=== PATIENT | female | born 1955 | race Caucasian/White ===

== ENCOUNTER 2016-10-09 15:42 | Inpatient (IN) | payer MEDICARE ==
[~2016-10-09] VITALS: Ht 157.5 cm; Wt 110.4 kg
--- NOTE | ~2016-10-09 | ECH ---
Transesophageal Echocardiography Report (LALO) Demographics Patient Name ANNA ESTRADA Date of Study 10/15/2016 Patient Number [id number] Visit Number [id number] Date of 1955 Room Number 312 Accession Number [id number] Gender Female Age 61 year(s) Referring Jacob Coburn MD Lasting Machine Operator Bed Merlyn Steiner [facility] Physician Natalia Coburn MD Physician Interpreting Dank Rich Kennel Aide Physician Supervising Ordering Physician Dank Rich MD/MLGema MILLS Nurse Stress Roll Line Operator Conclusions Summary Informed consent obtained. Transesophageal echocardiogram was done under moderate sedation . Esophageal intubation without difficulty x 1 attempt. The estimated left ventricular ejection fraction is 50-55%. The mitral valve has been surgically repaired. MV with mild degenerative changes. THERE IS EVIDENCE of a small VEGETATION on the anterior leaflet of mitral valve leaflet. Mild mitral regurgitation by color Doppler. No obvious vegetation on device lead. There is no thrombus in the left atrial appendage. There is no evidence of patent foramen ovale by color Doppler. The aortic valve is moderately sclerotic. Can not rule out small vegetation on AI, however, unlikely given absence of AI. Normal appearing tricuspid valve. No obvious vegetation on TV. Mild tricuspid regurgitation by color Doppler. Pulmonic valve is grossly normal. No evidence of vegetation on PV. Findings discussed with ID physician. Patient tolerated the procedure well without any acute complications. Procedure Type of Study LALO procedure:LALO SF. Procedure Date Date: 10/15/2016 Start: 10:45 AM Technical Quality: Good visualization Additional Indications:Positive blood cultures Appropriate Use Criteria: 9 Height: 62 inches Weight: 211 pounds BSA: 1.96 m Rhythm: NSR HR: 90 bpm BP: 116/55 mmHg O2 Saturation: 96 % Type of Anesthesia: Moderate sedation Findings Left Ventricle Normal left ventricle size and function. Right Ventricle Normal right ventricle structure and function. No obvious vegetation on device lead. Left Atrium There is no thrombus in the left atrial appendage. There is no evidence of patent foramen ovale by color Doppler. Mitral Valve The mitral valve has been surgically repaired. There are moderate degenerative changes. Evidence of a small vegetation on the anterior mitral leaflet. Mild mitral regurgitation by color Doppler. Aortic Valve The aortic valve is moderately sclerotic. Can not rule out vegetation. Tricuspid Valve Normal appearing tricuspid valve. No obvious vegetation. Mild tricuspid regurgitation by color Doppler. Pulmonic Valve Normal pulmonic valve structure and function. No evidence of vegetation. Miscellaneous Normal ascending aorta. Contractility Score LV regional wall motion:(0-Non visualized 1-Normal 2-Hypokinesis 3-Akinesis 4-Dyskinesis 5-Aneurysm) Signature
--- NOTE | ~2016-10-09 | ECH ---
Transthoracic Echocardiography Report (TTE) Demographics Patient Name ANNA ESTRADA Date of Study 10/11/2016 Patient Number [id number] Visit Number [id number] Date of 1955 Room Number 312 Accession Number [id number] Gender Female Age 61 year(s) Referring Jacob Coburn MD Procedures Rn Lizette Simental [facility] Physician Natalia Coburn MD Physician Interpreting Brittanie Allen Corporate Meeting Planner Physician Supervising Ordering Physician Natalia Coburn MD, MD/P Nurse Stress Community Planning Technician Conclusions Summary Technically fair exam. The estimated left ventricular ejection fraction is 50-55%. Mild segmental wall motion abnormalities noted. Mild left ventricular hypertrophy. The left atrium is severely dilated by LA volume index measurement. The right atrium is moderately dilated. The mitral valve has been surgically repaired with a mean gradient of 8mmHg. Mild mitral regurgitation by color Doppler. Moderate tricuspid regurgitation by color Doppler. There is severe pulmonary hypertension. The pulmonary pressure (RVSP) is 72 mmHg. No obvious evidence of endocarditis. Procedure Type of Study TTE procedure:Echo Complete SF. Procedure Date Date: 10/11/2016 Start: 04:06 PM Technical Quality: Adequate visualization Indications:History of mitral valve repair and Congestive heart failure. Additional Indications:bacteremia Appropriate Use Criteria: 9 Height: 62 inches Weight: 211 pounds BSA: 1.96 m Rhythm: Irregular HR: 82 bpm BP: 99/50 mmHg M-Mode/2D Measurements LV Diastolic Dimension: 4.45 cm LV Systolic Dimension: 3.98 cm LV Septum Diastolic: 1.1 cm LV PW Diastolic: 0.99 cm AO Root Dimension: 2.16 cm Cardiac Output: 6.68 l/min LA Dimension: 4.63 cm Cardiac Index: 3.41 l/min*m RV Diastolic Dimension: 3.82 cm LA volume index: 56 ml/m LVOT: 2 cm LVOT VTI: 25.95 cm RV Base: 3.5 cm LV Stroke volume: 81.48 ml RV Mid: 1.8 cm LV Stroke volume index: 41.57 ml/m RV Length: 5.4 cm Doppler Measurements AV Peak Velocity: 2.8 m/s MV Peak E-Wave: 0 m/s AV Peak Gradient: 31.36 mmHg MV Peak A-Wave: 1.69 m/s AV Mean Gradient: 15.84 mmHg MV E/A Ratio: 0 LVOT Peak Velocity: 1.4 m/s MV P1/2t: 150.2 msec AV Area (Continuity):1.6 cm TR Velocity:4.11 m/s MV Deceleration Time: 517.9 msec TR Gradient:67.46 mmHg MV Area (PHT): 1.46 cm Estimated RAP:5 mmHg PV Peak Velocity: 1.25 m/s Estimated RVSP: 72 mmHg PV Peak Gradient: 6.22 mmHg Estimated PASP: 72.46 mmHg RA Area: 23.57 cm Findings Left Ventricle The left ventricle is normal in size . Mild left ventricular hypertrophy. Diastolic function indeterminate due to patient's arrhythmia. Right Ventricle Normal right ventricle structure and function. Device lead noted in the right ventricle. Left Atrium The left atrium is severely dilated by LA volume index measurement. Right Atrium The right atrium is moderately dilated. Device lead seen in the right atrium. Mitral Valve The mitral valve has been surgically repaired with a mean gradient of 8mmHg. Mild mitral regurgitation by color Doppler. Aortic Valve There is mild aortic stenosis by the Continuity Equation. The peak velocity is 2.8 m/s, the mean gradient is 15.8 mmHg, and the valve area based on the continuity equation is 1.6cm2, with peak velocity found at apical. There is trivial aortic regurgitation by color Doppler. Tricuspid Valve Normal tricuspid valve structure and function. Moderate tricuspid regurgitation by color Doppler. There is severe pulmonary hypertension. The pulmonary pressure (RVSP) is 72 mmHg. Pulmonic Valve Normal pulmonic valve structure and function. Pericardial Effusion No evidence of pericardial effusion. Miscellaneous Visualized portions of the aortic root and ascending aorta appear normal in size. Pleural Effusion No evidence of pleural effusion. Contractility Score LV regional wall motion:(0-Non visualized 1-Normal 2-Hypokinesis 3-Akinesis 4-Dyskinesis 5-Aneurysm) Signature
[~2016-10-09 15:42] MED LIST: BUDESONIDE0.25 MG/2 IH; CARAFATE DPS1 GM PO; CYMBALTA DPS60 MG PO; DUONEB DPS3 ML IH; FEOSOL-DPS325 MG PO; IMDUR DPS60 MG PO; INVOKANA300 MG PO; KLOR-CON M2020 ME1 PO; LANTUS100 UNITS/ SQ; LOPRESSOR50 MG PO; LOTENSIN5 MG PO; MIRALAX17 GM PO; NEURONTIN100 MG PO; NITROSTAT0.4 MG SL; NOVOLOG100 UNIT/1 SQ; PLAVIX75 MG PO; PRAVACHOL40 MG PO; PRILOSEC DPS20 MG PO; PULMICORT0.5 MG/2 M IH; RANEXA500 MG PO; TYLENOL DPS325 MG PO; TYLENOL EXTRA500 M1 PO; TYLENOL325 MG PO
--- NOTE | 2016-10-10 09:26 | HP ---
ADMIT: 10/09/2016 RM/LOC: 312 [facility] MR#: [id number] [address] [address] SARAHI ESTRADA [address] [place] [address] History and Physical SEX: F AGE: 61 : 1955 DATE OF SERVICE: CHIEF COMPLAINT AND HISTORY OF PRESENT ILLNESS: Sarahi presented to the emergency room with lethargy, fever to 103 at home, and cough. She has a little bit of a limited historian because she is so lethargic, but she said she has not felt well for a couple weeks, but much worse the last couple days. Sister checked on her and found her ill and she was brought to the emergency room where she was found to be febrile, hypotensive, and suspected to have sepsis. She denies anything other than some usual left upper chest pain that she has chronically. She denied any urinary complaints, nausea or vomiting, mostly the cough, congestion, and the fever. In the emergency room, she was treated through the sepsis protocol including the IV fluid bolus, but her pressures were still low, so we are starting Levophed. She has not been hypoxic. Her lactate is elevated as is her procalcitonin levels. She is admitted to ICU. PAST MEDICAL HISTORY: She has had many may hospitalizations at [facility] over the last 30 years, many of them for chest pain related syndromes, many of them atypical chest pain. She was hospitalized under similar circumstances in July of this year, but prior to that had not been hospitalized at [facility] since 2014 when she had acute systolic congestive heart failure. 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 She has chronic ischemic cardiomyopathy with an ejection fraction of 50% range. Osteoporosis. Procedure history includes upper and lower scopes, which are multiple, coronary artery stents, which are multiple, implantable cardio defibrillator, multivessel bypass, mitral valve repair, rotator cuff repair, tubal ligation, cataract surgery, cholecystectomy, and elbow surgery of some type. SOCIAL HISTORY: She is . Employment status unknown. She is an on again and off again smoker, does not drink. FAMILY HISTORY: Positive for alcoholism, myocardial infarction, diabetes, and an unspecified cancer in first-degree relatives. Sister of kidney failure. ALLERGIES/INTOLERANCES: Include aspirin, metformin causes gastrointestinal difficulties, Januvia with gastrointestinal difficulties, and unspecified reaction to sulfa. Aspirin thought to be a true allergy. MEDICATIONS: 1. Benazepril 10 mg 1/2 tab daily. 2. Budesonide by nebulizer b.i.d. ADMIT: 10/09/2016 RM/LOC: 312 [facility] MR#: [id number] [address] [place] [id number] SARAHI ESTRADA [address] [place] [address] History and Physical SEX: F AGE: 61 : 1955 3. Plavix 75 mg daily. 4. Cymbalta 60 mg daily. 5. Ferrous sulfate 325 mg daily. 6. Gabapentin 600 mg 2 t.i.d. 7. Invokana 300 mg once a day. 8. DuoNeb t.i.d. p.r.n. 9. Imdur 60 mg daily. 10.Lantus, dose uncertain either 80 units b.i.d. or 80 units in the morning and 60 units in the evening. 11.Metoprolol 25 mg b.i.d. 12.Omeprazole 20 mg b.i.d. 13.Potassium 10 mEq once a day. 14.Pravastatin 40 mg at bedtime. 15.Carafate 1 g q.i.d. 16.She is on auto-CPAP at 5 to 10 cm. REVIEW OF SYSTEMS: Limited at this time due to the patient's lethargy, but as noted, she does not have any substernal chest pain, just the left upper chest pain, which is not unusual for her. Cough, but no severe dyspnea. No vomiting. Denies diarrhea. Denies any other pain. No specific urinary complaints. Once again, this limits of review of systems at this time. PHYSICAL EXAMINATION: GENERAL: She is a 61-year-old female, appears a little bit volume deplete. SKIN: Little bit of a prune like feel to it, so I am sure she has been behind on fluids. As noted, her sats were in the normal range on room air. Her last blood pressure was below a map of 65. Her temp on admission was 103, her heart rate currently 100. Mild sinus tachycardia. Respiratory rate not increased. ENT: Mucous membranes are dry. Throat is clear. No nasal discharge. Hearing is intact. Eyes, sclerae are nonicteric. NECK: No masses or tenderness. HEART: Distant regular rhythm. Slightly tachycardic. LUNGS: Clear anterior and posterior. I do not near crackles, wheezes, or rhonchi. ABDOMEN: Soft. No masses or tenderness. BREASTS, PELVIC, AND RECTAL: Exams not performed EXTREMITIES: Upper extremities normal but for the skin turgor being decreased. Lower extremities, no edema in her legs. Pulses diminished. NEUROLOGIC: She has a chronic slight right facial droop, which has been unchanged for years, otherwise no gross focal neurologic symptoms. Globally, she is as noted lethargic, but does answer questions, and she is oriented to person and place. She also recognizes me as her physician and she knows my name. Also, her neck is supple. IMPRESSION: 1. Severe sepsis likely respiratory source. 2. She has elevated troponins likely secondary to severe sepsis, although ADMIT: 10/09/2016 RM/LOC: 312 [facility] MR#: [id number] [address] [facility] [address] [place] [id number] SARAHI ESTRADA [address] [place] [address] History and Physical SEX: F AGE: 61 : 1955 she does have chronic heart disease as listed above. 3. Chronic idiopathic thrombocytopenic purpura with platelets slightly low at 34,000. 4. She has mild renal insufficiency probably related to sepsis and volume depletion. 5. Type 2 diabetes. 6. Obstructive sleep apnea. 7. Probable also underlying chronic obstructive pulmonary disease. 8. Obesity. PLAN: Blood cultures are pending. We started pressors. We have consulted critical care doctorJoe. We started broad-spectrum IV antibiotics. I have discussed with the patient and family. We will adjust treatment as appropriate. Weston James MD/ rajeev JOB #: [id number] CC: Weston James, Attending Physician Weston James, Family Physician
--- NOTE | 2016-10-12 14:13 | CO ---
ADMIT: 10/09/2016 RM/LOC: 312 [facility] MR#: [id number] [facility]#: [id number] [address] [address] ANNA ESCOBAR [address] [place] [address] Consultation SEX: F AGE: 61 : 1955 DATE OF CONSULTATION: 10/11/2016 ATTENDING PHYSICIAN: Weston James CONSULTING PHYSICIAN: Amara Fisher MD REASON FOR CONSULT: Staphylococcus aureus bacteremia. Thank you Dr. James for the consult and involving me in this patient's care. HISTORY OF PRESENT ILLNESS: Ms. Escobar is a 61-year-old woman with history of coronary artery disease, cardiomyopathy status post AICD who presented with complaint of fever and not feeling well since the last 3-4 days. She was admitted on October 09 and was found to have lactic acidosis and hypotension. She is currently in ICU and was requiring pressors. Her admission blood cultures one bottle grew Staphylococcus aureus. She was initially started on vancomycin, levofloxacin, and Zosyn. She also has history of ITP. She reports doing a dental work 1 week back and had her 3 teeth filled 1 week back. She denied any other complaints on admission. Today, she reports 7 loose bowel movements after starting antibiotics. PAST MEDICAL HISTORY: 1. Coronary artery disease, status post CABG. 2. ITP. 3. Type 2 diabetes mellitus. 4. Hypersplenism. 5. Obstructive sleep apnea. 6. Gastroesophageal reflux disease. 7. Subarachnoid hemorrhage with minimal residual ataxia. 8. Ischemic cardiomyopathy. 9. Osteoporosis. PAST SURGICAL HISTORY: 1. Status post AICD placement. 2. CABG. 3. Mitral valve repair. 4. Rotator cuff repair. 5. Tubal ligation. 6. Bilateral cataract surgery. 7. Cholecystectomy. 8. Left tennis elbow surgery. SOCIAL HISTORY: She is . Lives at home with her daughter. Smokes 5-6 cigarettes every day. Denies any alcohol or recreational drug use. FAMILY HISTORY: Significant for non-Hodgkin's lymphoma in her mother. Sister of renal failure. ALLERGIES: TO ASPIRIN, METFORMIN, AND SULFA. ADMIT: 10/09/2016 RM/LOC: 312 [facility] MR#: [id number] [address] [address] ANNA ESCOBAR [address] [place] [address] Consultation SEX: F AGE: 61 : 1955 CURRENT MEDICATIONS: Include: 1. Carafate. 2. Protonix. 3. DuoNeb. 4. Insulin. 5. Levophed drip. 6. Vancomycin 1 g once daily. 7. Zosyn 3.375 g every 8 hours. REVIEW OF SYSTEMS: Ten point systems negative except as mentioned in HPI. PHYSICAL EXAMINATION: VITAL SIGNS: Current temperature 98.1, T-max 102.2, heart rate 94, respirations 13, blood pressure 111/62, and 95% on room air. GENERAL: No acute distress. HEENT: Head, normocephalic and atraumatic. Extraocular movements intact. Oral mucosa moist. LYMPH: No palpable anterior/posterior cervical or supraclavicular lymphadenopathy. CHEST: Decreased breath sounds bilaterally. No wheezes, rales, or rhonchi. CARDIOVASCULAR: S1 and S2 heard. Regular rate and rhythm. ABDOMEN: Soft, nontender, and nondistended. Active bowel sounds. PSYCH: Normal affect. Memory intact. SKIN: No rashes noted on exposed skin. DATA REVIEW: Per HPI. CBC today shows white count of 5.9, hemoglobin 12.1, low platelets of 28. BMP shows potassium of 3.3, creatinine 1. Urinalysis revealed 2 wbc's. ASSESSMENT AND PLAN: 1. Staphylococcus aureus bacteremia likely methicillin-susceptible, still awaiting sensitivities. At this time, I will narrow the antibiotics down to oxacillin 2 g every 4 hours. I will stop vancomycin, Zosyn, and Levaquin. I will order repeat blood cultures. Given the AICD, I would ADMIT: 10/09/2016 RM/LOC: 312 [facility] MR#: [id number] [address] [address] ANNA ESCOBAR [address] [place] [address] Consultation SEX: F AGE: 61 : 1955 like to get an echocardiogram to rule out any endocarditis. Her recent dental work could be the possible source for bacteremia. If she continues to have persistent bacteremia, then we will do some more imaging. 2. Diarrhea. We will check stool for C. difficile PCR. 3. Septic shock secondary to #1. 4. Idiopathic thrombocytopenic purpura. 5. Hypokalemia. 6. Obstructive sleep apnea. 7. Melena. 8. Coronary artery disease, status post coronary artery bypass grafting. 9. Congestive heart failure. Thank you for the consult. I will continue to follow the patient. Amara Fisher MD/ rajeev JOB #: [id number] CC: Weston James, Attending Physician Weston James, Family Physician
--- NOTE | 2016-10-27 10:47 | CO ---
ADMIT: 10/09/2016 RM/LOC: 423 [facility] MR#: [id number] [address] [address] ESTRADAHARMONYKYAW Matute [address] [place] [address] Consultation SEX: F AGE: 61 : 1955 DATE OF CONSULTATION: 10/22/2016 ATTENDING PHYSICIAN: Weston James CONSULTING PHYSICIAN: Randy Abbasi MD REASON FOR CONSULTATION: Acute kidney injury. HISTORY OF PRESENT ILLNESS: The patient is a pleasant 61-year-old female, who was admitted to the hospital almost a couple of weeks ago. Her initial presentation was because of lethargy, altered mental status, and high-grade fevers up to 103 Fahrenheit. She was initially in septic shock and was admitted to the ICU. Workup revealed MSSA bacteremia, and she has mitral valve endocarditis as well. She is being treated with antibiotics. She did receive some gentamicin for synergistic effect. She had an acute kidney injury on presentation with a creatinine of 1.6. This subsequently improved to 0.9 about a week ago, and since then has been gradually rising. It was 1.8 two days ago, 2.1 yesterday, and 2.6 today. She has been making good amount of urine. She has an extensive cardiac history and has been volume expanded. Diuretics were initiated by Cardiology yesterday. She has a good response to diuretics. She feels that she is getting progressively better. She denies any orthopnea. She continues to have lower extremity edema that is a predominant complaint. She denies any urinary complaints. She notes that she has been having some diarrhea. She denies any skin rash. She reports that her appetite is poor and she feels weak. REVIEW OF SYSTEMS: A complete review of systems is otherwise negative in detail except as mentioned in history of present illness above. PAST MEDICAL HISTORY: 1. Hypertension. 2. Coronary artery disease, status post CABG. 3. Type 2 diabetes mellitus, uncontrolled. 4. Microalbuminuria. 5. Dyslipidemia. 6. Fatty liver. 7. Hypersplenism. 8. ITP. 9. Obstructive sleep apnea. 10.GERD. 11.Ischemic cardiomyopathy. 12.Osteoporosis. 13.Mitral valve repair. 14.Cataract surgery. 15.Cholecystectomy. 16.Tubal ligation. ADMIT: 10/09/2016 RM/LOC: 423 [facility] MR#: [id number] [address] [address] ANNA ESTRADA [address] [place] [address] Consultation SEX: F AGE: 61 : 1955 SOCIAL HISTORY: She is . She lives with her daughter. She is a current smoker. Does not drink alcohol. FAMILY HISTORY: Her sister had chronic kidney disease secondary to diabetes. She was on dialysis. ALLERGIES: 1. SULFA. 2. ASPIRIN. 3. JANUVIA. MEDICATIONS: Reviewed and addressed in the chart. PHYSICAL EXAMINATION: VITAL SIGNS: Temperature 98.1 Fahrenheit, pulse 91, blood pressure 117/55. GENERAL: She is comfortable in recliner. HEENT: Head is nontraumatic and normocephalic. Extraocular movements are intact. Pale conjunctivae. Dry mucosa. NECK: Supple without JVD. CHEST: Clear to auscultation. CVS: Irregular. S1 and S2 heard. No rubs, murmurs, or gallops. ABDOMEN: Soft, obese. EXTREMITIES: 2+ bilateral lower extremity edema. SKIN: No rash or nodules. NEUROLOGIC: Alert, awake, and oriented x3. She is able to move all extremities. PSYCHIATRIC: Affect and memory within normal limits. MUSCULOSKELETAL: Major joints within normal limits. Range of motion within normal limits. LABORATORY DATA: Reviewed. BMP with sodium 141, potassium 4.7, creatinine 2.6. Trend of serum creatinine as outlined in the HPI above. Calcium 8.1, magnesium 1.6. No urine studies recently since her second episode of acute kidney injury. ASSESSMENT AND PLAN: 1. Acute kidney injury-the differential diagnosis for this includes ischemic/nephrotoxic acute tubular necrosis which remains the most likely diagnosis. Other possibilities include allergic interstitial nephritis secondary to penicillins. 2. Volume expansion/edema-she is responding well to diuretics. 3. Hypomagnesemia-likely secondary to decreased oral intake and diuretics. I will replete this with magnesium supplements. I will use oral ADMIT: 10/09/2016 RM/LOC: 423 [facility] MR#: [id number] [facility] [address] [address] NATALIE ANNA Giovani [address] [place] [address] Consultation SEX: F AGE: 61 : 1955 magnesium supplements to limit her volume intake. As noted above, her acute kidney injury is secondary to acute tubular necrosis. I have discussed her case with Infectious Disease as well as Cardiology, but her options for antibiotics are limited at this time. I agree with cautious diuresis and holding Aldactone. I will decrease her dose of Lasix to 60 mg a day intravenously because she has been hypotensive yesterday with the higher dose. I discussed the possibility of renal replacement therapy with her and she is agreeable to this if needed. I will also check urine studies to evaluate the etiology of her acute kidney injury further. Thank you for this consultation. Please do not hesitate to contact with any questions. Randy Abbasi MD/ rajeev JOB #: [id number] CC: Weston James, Attending Physician Weston James, Family Physician
--- NOTE | 2016-10-30 21:26 | ER ---
ADMIT: 10/09/2016 RM/LOC: ER [facility] MR#: [id number] [id number] [place], [place] [address] ANNA ESTRADA [address] [place] [address] Emergency Room Report SEX: F AGE: 61 : 1955 DATE: 10/09/2016 HISTORY OF PRESENT ILLNESS: A 61-year-old white female, comes to the Emergency Department, brought by squad. She has been confused, running a fever and cough. It has been present for the past several days. The majority of the history comes from the daughter as the patient is somewhat confused and unable to provide detailed history. Apparently, she has been sick for the past several days and increasingly worse now with a productive cough. She does complain of chills. PAST MEDICAL HISTORY: COPD, diabetes, and hypertension. PHYSICAL EXAMINATION: GENERAL: Reveals a 61-year-old female, in mild amount of distress. HEENT: Normocephalic. Pupils are equal and reactive. Pharynx is with no signs of infection or inflammation or infection. There is some clear rhinorrhea in the nares. NECK: Supple. Trachea midline. LUNGS: She is tachypneic. Decreased air movement and rhonchi bilaterally. ABDOMEN: Obese, soft, and nontender. CARDIOVASCULAR: Tachycardia, but no murmurs, rubs, or gallops. EXTREMITIES: Without clubbing, cyanosis, or edema. There are no focal findings. She has generalized weakness. EMERGENCY ROOM COURSE: Sepsis protocol was initiated. CBC is within normal parameters. Chemistry; potassium 3.2, bicarb 18, BUN 72, glucose 229, creatinine 0.6, and anion gap is 21. UA was unremarkable. Lactic acid 3.3. Troponin 1.030. EKG shows tachycardia. Chest x-ray, bilateral infiltrates. ABG on room air 7.47, 35, 57 and 91%. The patient is being admitted to the ICU with sepsis and pneumonia. Jerry Acosta MD/ rajeev JOB #: [id number] CC: Evert Vale MD, Attending Physician
--- NOTE | 2016-11-01 11:47 | CO ---
ADMIT: 10/09/2016 RM/LOC: 423 [facility] MR#: [id number] [address] [address] ANNA ESTRADA [address] [place] [address] Consultation SEX: F AGE: 61 : 1955 DATE OF CONSULTATION: 10/29/2016 ATTENDING PHYSICIAN: Weston James CONSULTING PHYSICIAN: Marisela Mays APRN TIME IN: 1025 hours. TIME OUT: 1100 hours. REASON FOR CONSULTATION: Supportive care consultation was requested by Dr. Carmona for discussion of goals for care. HISTORY OF PRESENT ILLNESS: Mrs. Estrada is a 61-year-old female with a past medical history that is extensive and includes coronary artery disease with prior CABG, as well as stents along with AICD, mitral valve repair, cardiomyopathy, type 2 diabetes mellitus, fatty liver, ITP, obesity, past history of subarachnoid hemorrhage, who was admitted to the hospital on 10/09 with increasing lethargy and fevers. Evaluation did reveal severe sepsis and blood cultures grew MSSA. Initially, she was very sick in the ICU requiring pressor support for multiple days. A LALO was able to be performed that showed an ejection fraction of 50% to 55%. She also had evidence of mitral valve vegetation on the anterior leaflet of the mitral valve. She has been receiving extensive antibiotic therapy. Unfortunately, her creatinine began to rise and Nephrology was consulted. She has now been started on hemodialysis and is currently receiving her third dialysis today. As mentioned, she does have a history of liver issues, and a CT of the chest was performed that did show a large amount of ascites in the upper abdomen with a nodular appearance of the liver suggesting hepatic disease. There are plans for her to follow up with a specialist at [facility] in the time ahead. Due to her multiple complex issues, supportive care consultation was requested to discuss goals for care. In terms of advanced directives, the patient has never completed a healthcare [id number] document. In terms of who she would want to be her medical decision maker, she states that either her son or daughter can make medical decisions for her. It is of note that her son, Randell Estrada, whose phone# [phone] is her eldest child and would be her next of kin at this time. She states that she feels like she has completed a living will in the past, and I have asked her to please have family bring this document to the hospital if they are able to. In terms of code status, the patient is a full code. Symptomatically, the patient states that overall, she is comfortable. She denies pain or other discomfort. She is weak and debilitated. PAST MEDICAL HISTORY: As outlined above with the addition of: 1. GERD. 2. Hypersplenism. 3. Chronic anemia. ADMIT: 10/09/2016 RM/LOC: 423 [facility] MR#: [id number] [address] [place] [address] ANNA ESTRADA Giov[address] [place] [address] Consultation SEX: F AGE: 61 : 1955 4. Obstructive sleep apnea. 5. ITP. 6. Osteoporosis. 7. Cataract surgery. 8. Mitral valve repair. 9. Cholecystectomy. 10.Tubal ligation. ALLERGIES: THE PATIENT IS ALLERGIC TO SULFA, ASPIRIN, AND JANUVIA. CURRENT MEDICATIONS: Please see the patient's MAR for specific routes and dosages. Her current medications are as follows: 1. Levemir. 2. Hydrocodone. 3. Tylenol. 4. Cubicin. 5. Mycostatin. 6. Magnesium. 7. Lasix. 8. Desyrel. 9. Plavix. 10.Lopressor. 11.DuoNeb. 12.NovoLog. 13.Flexeril. 14.Nitro drip. 15.Colace. 16.Maalox. 17.Lidocaine. 18.Hurricaine spray. 19.Zofran. 20.Carafate. 21.Protonix. 22.Nitro-Bid. 23.Tylenol. 24.Nitrostat. 25.Heparin. SOCIAL HISTORY: The patient is but states that she remains very friendly with her ex- and he is actually coming to visit her this weekend from [place]. She lives with her daughter. She has both a son and daughter who are involved with her care. She does not drink alcohol. She was smoking up until this hospital stay. FAMILY HISTORY: Her sister and chronic kidney disease, secondary to diabetes. Alcoholism as well as coronary artery disease, also runs in her family. FUNCTIONAL REVIEW: Prior to hospital stay, she was at home. She could ADMIT: 10/09/2016 RM/LOC: 423 [facility] MR#: [id number] [address] [id number] ANNA ESTRADA [address] [place] [address] Consultation SEX: F AGE: 61 : 1955 perform ADLs independently. She states that she could ambulate without a walker. Her palliative performance scale prior to admission was around at 80% to 90%. Currently, she is mostly in bed. She can ambulate with 1 assist. Her intake is reduced. She is fatigued. Her current palliative performance scale is 40% to 50%. REVIEW OF SYSTEMS: A 10-point review of systems was completed and other than those pertinent positives and negatives mentioned the HPI, it is negative. PHYSICAL EXAMINATION: GENERAL: The patient is examined in the bed. She is receiving dialysis during my assessment. She is in no acute distress. VITAL SIGNS: Temperature 97.1, pulse 93, respirations 18, blood pressure 111/67, oxygen 99% on 2 L per nasal cannula. HEENT: Head is normocephalic. Pupils are 3 mm bilaterally and brisk. Oral mucosa pink and moist with poor dentition. NECK: Supple. Trachea midline. RESPIRATORY: Respirations are equal and nonlabored at rest. My exam is limited by the fact that she is receiving dialysis and I can only listen to her anteriorly. CARDIOVASCULAR: Heart tones are distant. Rate and rhythm is regular. GASTROINTESTINAL: Obese. Bowel sounds are positive. MUSCULOSKELETAL: Generalized weakness. No obvious joint deformities. INTEGUMENTARY: Skin turgor is fair. NEUROLOGIC: Alert and oriented x3. She will follow commands. PSYCHIATRIC: Calm. Cooperative. No agitation or delirium noted. DIAGNOSTIC DATA: Sodium 140, potassium 3.0, BUN 22, creatinine 3.6, total protein 7.3, albumin 1.7. WBCs are 4.4, hemoglobin 8.6, hematocrit 28.6, and platelets are 68. IMPRESSION: 1. Physical debility. 2. Fatigue. 3. Malaise. 4. Obesity. 5. 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 6. Sepsis, which is improving. 7. Chronic liver disease. 8. Acute kidney injury for which she is requiring hemodialysis. 9. Immune thrombocytopenic purpura. 10.Acute on chronic heart failure. 11.Coronary artery disease. 12.History of chronic obstructive pulmonary disease. 13.History of subarachnoid hemorrhage. 14.Palliative care. 15.The patient is a full code. PLAN OF TREATMENT: ADMIT: 10/09/2016 RM/LOC: 423 [facility] MR#: [id number] [address] [place] [id number] ANNA ESTRADA [address] [place] [address] Consultation SEX: F AGE: 61 : 1955 1. I was able to meet with the patient the bedside. She is alert and oriented, and able to participate in medical decision making. We reviewed her overall status and goals for the time ahead. She states that at this time she understands that she is significantly ill and has a long road ahead of her. Her goal at this time is to continue ongoing aggressive therapy with the hopes of improvement. Her main goal is to get back home and she is not enthusiastic about the concept of having to go anywhere for rehab at the end of her hospital stay. She does agree to ongoing discussions with supportive care pending her status in the time ahead. 2. We did discuss code status including the burden versus benefit of a full code status versus do not resuscitate/do not intubate status. The patient is very clear that she wishes to remain a full code. She states that she would not want to be kept alive on machines long-term. 3. In terms of advanced directives, the patient has not designated healthcare [id number]. She is open to completing this paperwork in the time ahead. She wants to think about whether she wants her son her daughter to be her healthcare [id number] over the course of the weekend. She is agreeable to us completing this paperwork with her on Tuesday, and I will potentially complete a POLST form with her at that time as well pending her status. 4. We will continue to follow along in the care of this very kind and interesting patient. We would like to thank Dr. Carmona for the invitation to participate in this patient's care. Total consultation time was 35 minutes from 1025 hours 1100 hours with 20 minutes from 1030 hours to 1050 hours spent [id number] with the patient discussing goals for care and providing counseling and support. We will continue to follow along. Marisela Mays APRN/ rajeev JOB #: [id number] CC: Weston James, Attending Physician Weston James, Family Physician
--- NOTE | 2016-11-04 09:31 | CO ---
ADMIT: 10/09/2016 RM/LOC: 423 [facility] MR#: [id number] [address] [address] SARAHI ESTRADA [address] [place] [address] Consultation SEX: F AGE: 61 : 1955 DATE OF CONSULTATION: 10/20/2016 ATTENDING PHYSICIAN: Weston James CONSULTING PHYSICIAN: Paras Longoria MD REASON FOR CONSULT: Endocarditis. Pinky Morrison RN, scribing for Dr. Paras Longoria. HISTORY OF PRESENT ILLNESS: Sarahi is a pleasant 61-year-old female, I am familiar with, and I have been asked to see in Cardiology consultation by Dr. Fisher for endocarditis with fluid overload. She was admitted on the with sepsis, Staph aureus positive blood cultures. She had 103 temperature and was hypotensive requiring pressors. She was admitted to the ICU, received multiple units of fluid, and was on pressors for quite a while. On Tuesday of last week, about five days ago, she had a LALO that demonstrated ejection fraction of 50% to 55% with a small vegetation on the anterior leaflet of the mitral valve which had already been repaired in the past. She had mild MR with that and it was noted that there was no obvious vegetation on her ICD lead. Her weight on admission was around 220, and weight in April in office was 217. Weight today is now [address] of her chest and abdomen yesterday that demonstrated a large abdominal ascites. She does have small bilateral pleural effusions. She also has significant peripheral edema that she describes as painful. She is also complaining of orthopnea and appears to be short of breath even at rest. She is somewhat confused, but is oriented x3. Her answers are slow to respond. Her kidney function has worsened since her hospital stay with a creatinine of 1.8. She is anemic with a hemoglobin of 9.9. Currently, she is getting a one time daily dose of Lasix 20 mg IV for diuresis, and because of her infection, she is needing quite a bit of IV antibiotics resulting in intake of 3500 mL of fluid, 2500 of which is IVs. She is positive 1500 mL for I and O output. Cardiac history and risk factors; Sarahi has history of coronary artery disease, status post multiple stents with last cardiac catheterization in 2009 demonstrating normal left main, 100% mid LAD in-stent restenosis, 95% ostial stenosis jailed by previous stent, normal circumflex, normal right coronary artery, and patent grafts. She has history in 2002 of two vessel bypass, CUEVAS to mid LAD and distal LAD which were continued to be open on catheterization in 2009, and mitral valve repair at that time as well. She also has history of ischemic cardiomyopathy with ejection fraction improved to 50% to 55% on LALO on 10/15 of this year. She is status post ICD. She has obstructive sleep apnea, uses CPAP, hyperlipidemia, diabetes, and significant family history of premature coronary artery disease as well. She has history of tobacco use and hypertension. PAST MEDICAL HISTORY: 1. History of subarachnoid hemorrhage. 2. Chronic anemia. ADMIT: 10/09/2016 RM/LOC: 423 [facility] MR#: [id number] [address] [place] [id number] SARAHI ESTRADA [address] [place] [address] Consultation SEX: F AGE: 61 : 1955 3. Anxiety. 4. Osteoarthritis. 5. Puckett's esophagus. 6. Szymanski's palsy. 7. Cataracts. 8. COPD. 9. Diabetic nephropathy. 10.Diabetic retinopathy. 11.Factor V Leiden. 12.Gallbladder disease. 13.Gastroesophageal reflux disease. 14.History of hematuria. 15.History of rectal polyps and blood in stools. 16.Primary hypothyroidism. 17.ITP. 18.Obesity. 19.Orthopnea. 20.Chronic sinusitis. 21.Sleep apnea, on CPAP. PAST SURGICAL HISTORY: Includes: 1. Multiple scopes with colonoscopies. 2. Elbow surgery. 3. Rotator cuff repair. 4. Tubal ligation. 5. Cataract extraction. 6. Cholecystectomy. ALLERGIES: 1. SULFA. 2. ASPIRIN. 3. JANUVIA. MEDICATIONS: Current medications in hospital includes: 1. Potassium 40 mEq p.o. t.i.d. 2. Lopressor 12.5 p.o. b.i.d. 3. She had a one time order of Lasix 20 mg IV today. 4. Carafate 1 g a.c. and at bedtime. 5. Protonix 40 p.o. b.i.d. 6. Levemir 10 subcu at bedtime. 7. NovoLog insulin sliding scale before a.c. and at bedtime. 8. Garamycin 70 mg IV q.12 hours. 9. Oxacillin 2 g IV q.4 hours. 10.Rifadin 300 mg IV q.8 hours. FAMILY HISTORY: Positive family history of coronary artery disease in sister and mother. Positive family history of alcoholism in multiple family members. Positive family history of diabetes in mother. Positive family history of ADMIT: 10/09/2016 RM/LOC: 423 [facility] MR#: [id number] [address] [address] SARAHI ESTRADA [address] [place] [address] Consultation SEX: F AGE: 61 : 1955 cancer in mother, and there are multiple family members with lymphoma. SOCIAL HISTORY: Sarahi is . She is on disability. She denies any special diet, caffeine, alcohol, or drug use. She does smoke cigarettes. REVIEW OF SYSTEMS: GENERAL: Reports increased fatigue. Denies any fevers in the last few days. She was admitted with 103 degree temperature. She is up about 40 pounds from admission. EYES: History of diabetic retinopathy. History of cataract extraction. THROAT, MOUTH, AND EARS: She has chronic sinusitis. Denies any sore throat or hearing issues. RESPIRATORY: History of COPD, history of obstructive sleep apnea, on CPAP. Denies any hemoptysis. GASTROINTESTINAL: History of gastroesophageal reflux disease, esophageal varices, Puckett's esophagus, gallbladder disease status post cholecystectomy. Denies any hiatal hernia, trouble swallowing, or stomach ulcers. GENITOURINARY: History of diabetic nephropathy. Denies any hematuria. Her creatinine is elevated at 1.8. MUSCULOSKELETAL: History of osteoporosis, osteoarthritis. Denies gout. ENDOCRINE: Positive for diabetes. Positive for hypothyroidism. HEMATOLOGY: Factor V Leiden, ITP, baseline platelets around 50 to 58,000. Chronic anemia. Denies cancer history. NEUROLOGIC: History of recent subarachnoid hemorrhage. History of Szymanski's palsy. Denies stroke or seizure. PSYCHIATRIC: History of anxiety. Denies any depression currently. PHYSICAL EXAMINATION: VITAL SIGNS: Blood pressure 121/62, heart rate 82, respirations 16, temperature 97.2, oxygenation 94% on O2. SKIN: [place], warm and dry. EYES: Sclerae clear. No xanthelasmas. ENT: Oral mucosa is pink and moist. No jugular venous distention or carotid bruits. CHEST: Respirations are even and unlabored. Lungs, decreased breath sounds bilaterally. HEART: Irregularly irregular. No murmurs, gallops, or rubs. ABDOMEN: Soft and nontender. MUSCULOSKELETAL: Gait is normal. EXTREMITIES: No cyanosis or clubbing. Moderate edema bilateral lower extremity. PSYCHIATRIC: Alert and oriented. Mood and affect are appropriate. DIAGNOSTIC DATA: LALO on 10/16/2015, showed EF of 50% to 55% with small vegetation in anterior leaflet mitral valve which is status post repair with mild MR. No obvious vegetation on device lead. LABORATORY DATA: Sodium 140, potassium 4.5, BUN 19, creatinine 1.8, glucose 147. Last CBC was on 10/17, which showed a white blood cell count of 5.4, hemoglobin 9.9, hematocrit 31.3, platelets 88. CT of chest on 10/19, shows ADMIT: 10/09/2016 RM/LOC: 423 [facility] MR#: [id number] [address] [address] SARAHI ESTRADA [address] [place] [address] Consultation SEX: F AGE: 61 : 1955 small bilateral pleural effusions and a large amount of ascites in upper abdomen. DIAGNOSTIC DATA: 1. Acute on chronic diastolic heart failure. 2. Coronary artery disease. 3. Hypertension. 4. Mitral valve endocarditis. I would recommend continuing antibiotics per Infectious Disease. She will need some diuresis as her weight is up about 40 pounds. I will continue to watch renal function closely and also watch her potassium I will give her Lasix 80 mg IV b.i.d. starting today with Aldactone 12.5 p.o. daily. Check BMP and Mag in the morning and every morning while here, and restart her Plavix 75 mg daily per home dose. Thank you for the consultation. I have read and agree with the documentation that has been completed regarding this visit. By signing this record, I attest that the documentation was completed in my physical presence and is an accurate record of the encounter. Pinky Morrison RN / Paras Longoria MD / rajeev JOB #: [id number] CC: Weston James, Attending Physician Weston James, Family Physician
[2016-11-07] MEDS ORDERED: NORVASC5 MG PO (15:32)
[2016-11-07] MEDS ORDERED: MOBIC15 MG PO (15:33)
[2016-11-07] MEDS ORDERED: MAG6464 MG PO (15:35)
[2016-11-07] MEDS ORDERED: LASIX DPS40 MG PO (15:36)
[2016-11-07] MEDS ORDERED: MYCOSTATIN PWD15 GM TP (15:36)
[2016-11-07] MEDS ORDERED: LEVEMIR100 UNIT/1 SQ (15:37)
[2016-11-07] MEDS ORDERED: NOVOLOG FL100 UNIT/1 SQ (15:38)
[2016-11-07] MEDS ORDERED: CUBICIN500 MG IV (15:39)
[2016-11-07] MEDS ORDERED: COLACE-DPS100 MG PO (15:39)
[2016-11-07] MEDS ORDERED: DESYREL-DPS50 MG PO (15:40)
[2016-11-07] MEDS ORDERED: HURRICAINE TP (15:41)
[2016-11-07] MEDS ORDERED: FLEXERIL DPS5 MG PO (15:41)
[2016-11-07] MEDS ORDERED: HYDROCODON-ACE1 EAC6 PO (15:44)
[2016-11-07] MEDS ORDERED: MAALOX DPS30 ML PO (15:44)
--- NOTE | 2016-11-15 16:45 | CO ---
ADMIT: 10/09/2016 RM/LOC: 312 [facility] MR#: [id number] [address] [address] ESTRADAHARMONYIS Giovani [address] [place] [address] Consultation SEX: F AGE: 61 : 1955 DATE OF CONSULTATION: 10/09/2016 ATTENDING PHYSICIAN: Weston James CONSULTING PHYSICIAN: Margo Diaz MD REASON: Shock, sepsis. HISTORY OF PRESENT ILLNESS: The patient is a 61-year-old female, who has a history of cardiomyopathy, coronary artery disease, and AICD, who presents with acute illness of 1-1/2 days with cough, shortness of breath, and fever from chest pain. She came to the emergency room after the symptoms and her procalcitonin was over 44 with chest x-ray showing bibasilar pulmonary infiltrates. Cough is present that is productive, mild chest pain. Rapid influenza testing was negative. Her lactate was 3.3. Blood pressure was 70/40. Hemoglobin 12.5, white count 5.9, chronically low platelets of 34. Creatinine mildly elevated. PAST MEDICAL HISTORY: Includes coronary artery disease with prior CABG and stents, AICD, mitral valve repair, cardiomyopathy, type 2 diabetes, gastroesophageal reflux disease, fatty liver, hypersplenism, ITP, chronic anemia, morbid obesity, obstructive sleep apnea, remote subarachnoid hemorrhage. Operations are reviewed. ALLERGIES: SULFA, ASPIRIN, AND SITAGLIPTIN. MEDICATIONS: Reviewed. REVIEW OF SYSTEMS: Except the HPI is reviewed noncontributory. SOCIAL HISTORY: Smoking, , unemployed. FAMILY HISTORY: Positive for alcoholism, coronary artery disease, diabetes, and kidney failure. PHYSICAL EXAMINATION: VITAL SIGNS: Temp 100, pulse 60, respirations 16, and blood pressure 70/40. HEENT: Within normal limits. NECK: No JVD or bruits. HEART: Regular rate. LUNGS: Rhonchi and wheeze. ABDOMEN: Soft, bowel sounds positive, nontender, nondistended. Spleen is enlarged. EXTREMITIES: Trace edema. No cyanosis or clubbing. GENITORECTAL: Deferred. NEUROLOGICAL: Intact. LABORATORY TESTING: Chest x-ray, infiltrate as noted above in the HPI. ADMIT: 10/09/2016 RM/LOC: 312 [facility] MR#: [id number] [address] [address] ESTRADA, ANNA Giovani [address] [place] [address] Consultation SEX: F AGE: 61 : 1955 IMPRESSION AND PLAN: 1. Septic shock secondary to acute febrile illness most likely early pneumonia. Recent hospitalization in the last 90 days concerning for healthcare-associated process. Vancomycin and Zosyn have been initiated. Blood cultures and urine cultures have been done. Levophed will be initiated to keep the map greater than 65 and vasopressin if this does not work too. 2. Elevated troponins. 3. Cardiomyopathy. 4. Automatic implantable cardioverter defibrillator. 5. Obstructive sleep apnea. Thanks for having me see her. We will continue aggressive treatment. Margo Diaz MD/ rajeev JOB #: [id number] CC: Weston James, Attending Physician Weston James, Family Physician
--- NOTE | 2016-11-16 06:44 | DS ---
ADMIT: 10/09/2016 RM/LOC: 423 [facility] MR#: [id number] [address] [address] SARAHI ESTRADA [address] [place] [address] General Discharge Summary SEX: F AGE: 61 : 1955 ADMISSION DATE: 10/09/2016 DISCHARGE DATE: 11/05/2016 FINAL DIAGNOSES: 1. Acute septic shock secondary to methicillin sensitive Staph aureus. 2. Methicillin sensitive Staph aureus bacterial endocarditis. 3. Acute tubular necrosis resulting in need for dialysis. 4. Acute on chronic diastolic congestive heart failure. 5. Chronic liver disease, most likely nonalcoholic steatohepatitis, but needs confirmed most likely by biopsy. 6. Chronic edema secondary to above. 7. Melenic stools. 8. Immune thrombocytopenia purpura. 9. Type 2 diabetes. 10.Anemia of chronic disease. 11.Chronic obstructive pulmonary disease. 12.Smoker. 13.Coronary artery disease. 14.Hypomagnesemia. NARRATIVE: Sarahi Estrada was admitted to acute care in obvious septic shock requiring large volumes of fluids and pressors. She was feverish on admission. See history and physical examination and electronic record and ER report for more details. She had been sick for several days. Source for sepsis was not clear at time of admission, however, subsequent workup revealed that she had bacterial endocarditis. PAST MEDICAL HISTORY: The patient has complicated past medical history with many chronic health conditions alluded to above plus dyslipidemia, hypersplenism, obstructive sleep apnea, GERD with history of Puckett's esophagus, osteoporosis. PAST SURGICAL HISTORY: Various surgeries notable include mitral valve repair in the remote past. PHYSICAL EXAMINATION: Her initial exam revealed her to be volume deplete, pressure below a MAP of 65, temp 103 on admission. GENERAL: She was extremely lethargic, somewhat impaired mentally on admission, quickly recovered over the next 24 hours. HEART: No new murmur was heard. LUNGS: Clear on admission. ABDOMEN: Nontender. She was of anything volume deplete on admission. LABORATORY DATA: She had extensive laboratory summary during her hospital stay which I will not attempt to reiterate. She presented on admission with platelets of 34,000, this is in a patient with chronic ITP. Hemoglobin was 12.5, white count was 5900. She did have some melenic stools during hospital stay. She did have a drop in her hemoglobin but did not require blood transfusion. Noted she required platelet transfusion. Initial urinalysis ADMIT: 10/09/2016 RM/LOC: 423 [facility] MR#: [id number] [address] [address] SARAHI ESTRADA [address] [place] [address] General Discharge Summary SEX: F AGE: 61 : 1955 showed ketones, glucose, protein, and some microscopic heme but no signs of infection. Once again, had multiple chemistry studies. Her initial procalcitonin was 44, initial creatinine 1.6, her baseline is 1.0. Magnesium was 1.7. Lactate was 3.6. She did have a bump in her troponin thought secondary to her septic shock, not a primary event. During the course of her hospital stay, her renal function gradually deteriorated with her creatinine climbing at one point above 5 eventually requiring initialization of dialysis therapy. Various studies sent to reference labs, will not be referred to directly in this narrative, but they largely not to contribute to her diagnosis at this point. Her blood cultures were positive for Staph aureus methicillin sensitive. These were persistently positive 48 hours after admission leading to further studies including echocardiogram, transesophageal which did reveal evidence of endocarditis with vegetations on the anterior leaf of mitral valve. EF was 50%-55%. There were no vegetations on the device lead of her internal defibrillator. She had various other radiology studies including CT scans of her chest and abdomen, ultrasound of the kidneys, various chest x-rays. Notable was finding of hepatosplenomegaly with nodular contour to the liver suggesting some cirrhotic changes and ascites on her abdominal ultrasound. The patient was admitted to acute care. Admitted directly to the ICU for fluid resuscitation and IV pressor therapy and broad-spectrum IV antibiotic therapy was undertaken. Consultations during her hospital stay included Critical Care, Cardiology, Nephrology, and infectious Disease. With test ultimately determined that she had bacterial endocarditis. Dr. Fisher directed IV antibiotic therapy. With renal insufficiency, the Ancef had to be discontinued and eventually was placed on Cubicin. Gentamicin also had to be stopped for the same reason. Course was complicated by significant fluid overload contributed to by her kidney and renal insufficiency. Cardiac status and respiratory status remained for the most part, stable during her hospital stay. She had some transient melenic stools which resolved, possible she may need a repeat EGD and/or colonoscopy as an outpatient, but she was up to date on those previously, so it is possible that she may have had some bleeding from esophageal varices. Once again, her bleeding had stopped before she left the hospital. She is finally able to be dismissed with all preparations in place on November 05. Significant help was undertaken from social work as well. She was able to be dismissed home. She would have outpatient dialysis 3 times weekly with IV antibiotics. Cubicin to be given every 48 hours. It would sometimes be given by dialysis and sometimes being given by home antibiotic therapy. She would have home health nursing to include physical therapy. She had outpatient follow ups with the Family Practice, Cardiology, she be seen by final cleaner outpatient dialysis and she was also seen by Infectious Disease, all within the next 2 weeks. IV antibiotics were continued through November 25. OTHER MEDS: Include: 1. Carafate. 2. Potassium supplement. ADMIT: 10/09/2016 RM/LOC: 423 [facility] MR#: [id number] [facility] [address] [address] SARAHI ESTRADA [address] [place], [place] [id number] General Discharge Summary SEX: F AGE: 61 : 1955 3. Plavix. 4. Protonix. 5. Slow-Mag. 6. Levemir. 7. NovoLog. 8. Topical Mycostatin. 9. Lasix. 10.Omeprazole. 11.Gabapentin. 12.Benazepril. 13.Isosorbide. 14.Norvasc. 15.Pravastatin. 16.Metoprolol. In addition to above, I have arranged for her to have an outpatient consultation at [facility] Department of Hepatology in mid December to further assess her chronic liver disease. Weston James MD/ rajeev JOB #: [id number] CC: Weston James MD, Attending Physician Weston James MD, Family Physician
[2016-12-06] MEDS ORDERED: NOVOLOG100 UNIT/2 SQ (06:28)
[2016-12-06] MEDS ORDERED: CORGARD DPS20 MG PO (06:29)
[2016-12-06] MEDS ORDERED: LACTULOSE20 GM/30 M PO (06:30)
[2016-12-06] MEDS ORDERED: NITROSTAT0.4 MG SL (06:30)
== END 2016-11-05 17:32 | disposition home health service (06) | DRG 871 ==
LOC: ER 15:42 → 4PCU 17:30 → 3ICU 17:30 → 4PCU 10-16
PROVIDERS: ADMIT Family Medicine
PROC: B24BZZ4 Ultrasonography of Heart with Aorta, Transesophageal (ICD-10-PCS; principal; 2016-10-15)
PROC: 06H033Z Insertion of Infusion Device into Inferior Vena Cava, Percutaneous Approach (ICD-10-PCS; 2016-10-26)
PROC: B543ZZA Ultrasonography of Right Jugular Veins, Guidance (ICD-10-PCS; 2016-10-26)
PROC: B519ZZA Fluoroscopy of Inferior Vena Cava, Guidance (ICD-10-PCS; 2016-10-26)
PROC: 5A1D60Z (ICD-10-PCS; 2016-10-27)
PROC: B518ZZA Fluoroscopy of Superior Vena Cava, Guidance (ICD-10-PCS; 2016-11-03)
PROC: 0JH63XZ Insertion of Tunneled Vascular Access Device into Chest Subcutaneous Tissue and Fascia, Percutaneous Approach (ICD-10-PCS; 2016-11-03)
PROC: 02HV33Z Insertion of Infusion Device into Superior Vena Cava, Percutaneous Approach (ICD-10-PCS; 2016-11-03)
PROC: 02PY33Z Removal of Infusion Device from Great Vessel, Percutaneous Approach (ICD-10-PCS; 2016-11-03)
DX: A41.01 Sepsis due to Methicillin susceptible Staphylococcus aureus (principal); R65.21 Severe sepsis with septic shock; N17.0 Acute kidney failure with tubular necrosis; I33.0 Acute and subacute infective endocarditis; I50.33 Acute on chronic diastolic (congestive) heart failure; E83.42 Hypomagnesemia; I85.00 Esophageal varices without bleeding; R18.8 Other ascites; D69.3 Immune thrombocytopenic purpura; K92.1 Melena; I13.0 Hypertensive heart and chronic kidney disease with heart failure and stage 1 through stage 4 chronic kidney disease, or unspecified chronic kidney disease; D68.2 Hereditary deficiency of other clotting factors; J44.9 Chronic obstructive pulmonary disease, unspecified; F41.9 Anxiety disorder, unspecified; E11.22 Type 2 diabetes mellitus with diabetic chronic kidney disease; D63.1 Anemia in chronic kidney disease; H35.00 Unspecified background retinopathy; E66.9 Obesity, unspecified; Z68.37 Body mass index [BMI] 37.0-37.9, adult; N18.9 Chronic kidney disease, unspecified; E87.6 Hypokalemia; K75.81 Nonalcoholic steatohepatitis (NASH); E86.9 Volume depletion, unspecified; E11.65 Type 2 diabetes mellitus with hyperglycemia; E78.5 Hyperlipidemia, unspecified; I25.10 Atherosclerotic heart disease of native coronary artery without angina pectoris; E03.9 Hypothyroidism, unspecified; J32.9 Chronic sinusitis, unspecified; I25.5 Ischemic cardiomyopathy; F17.210 Nicotine dependence, cigarettes, uncomplicated; D73.1 Hypersplenism; G47.33 Obstructive sleep apnea (adult) (pediatric); K21.9 Gastro-esophageal reflux disease without esophagitis; K22.70 Barrett's esophagus without dysplasia; M81.0 Age-related osteoporosis without current pathological fracture; M19.90 Unspecified osteoarthritis, unspecified site; Z95.5 Presence of coronary angioplasty implant and graft; Z95.810 Presence of automatic (implantable) cardiac defibrillator; Z95.1 Presence of aortocoronary bypass graft; Z86.79 Personal history of other diseases of the circulatory system; Z82.49 Family history of ischemic heart disease and other diseases of the circulatory system

== ENCOUNTER → 2016-11-23 | Outpatient (CLI) | payer MEDICARE ==
[~2016-11-23] MED LIST changes: +COLACE-DPS100 MG PO; +CORGARD DPS20 MG PO; +CUBICIN500 MG IV; +DESYREL-DPS50 MG PO; +FLEXERIL DPS5 MG PO; +HURRICAINE TP; +HYDROCODON-ACE1 EAC6 PO; +LACTULOSE20 GM/30 M PO; +LASIX DPS40 MG PO; +LEVEMIR100 UNIT/1 SQ; +MAALOX DPS30 ML PO; +MAG6464 MG PO; +MOBIC15 MG PO; +MYCOSTATIN PWD15 GM TP; +NORVASC5 MG PO; +NOVOLOG FL100 UNIT/1 SQ; +NOVOLOG100 UNIT/2 SQ
== END | disposition home or self-care (01) ==
LOC: RAD.S 15:25
DX: I38 Endocarditis, valve unspecified (principal); R93.8 Abnormal findings on diagnostic imaging of other specified body structures; J90 Pleural effusion, not elsewhere classified; R18.8 Other ascites; R16.1 Splenomegaly, not elsewhere classified; R09.89 Other specified symptoms and signs involving the circulatory and respiratory systems; Z90.49 Acquired absence of other specified parts of digestive tract; Z95.0 Presence of cardiac pacemaker; Z95.828 Presence of other vascular implants and grafts; Z98.890 Other specified postprocedural states

== ENCOUNTER 2016-11-24 16:10 | Inpatient (IN) | payer MEDICARE ==
[~2016-11-24] VITALS: Ht 157.5 cm; Wt 107.5 kg
--- NOTE | ~2016-11-24 | ECH ---
Transesophageal Echocardiography Report (LALO) Demographics Patient Name ANNA ESTRADA Date of Study 12/02/2016 Patient Number [id number] Visit Number [id number] Date of 1955 Room Number 432 Accession Number [id number] Gender Female Age 61 year(s) Referring Jacob Coburn MD Coremaking Machine Setter Lizette Simental [facility] Physician Jie Stearns Physician Interpreting Jie MILLS Vault Person Physician Daryn Supervising Ordering Physician Jie MILLS MD/LATONIA Stearns Nurse Sosa Jerome Stress Asbestos Wire Finisher The procedure was explained in detail to the patient. Risks, complications and alternative treatments were reviewed. Written consent was obtained. Conclusions Contractility Score Summary Normal Left Ventricular contractility was noted. Summary The estimated left ventricular ejection fraction is 50-55%. The mitral valve has been surgically repaired.Prior small vegetation on anterior mitral leaflet has resolved. Mild mitral regurgitation by color Doppler. The aortic valve is sclerotic with no evidence of vegetation. Normal tricuspid valve structure with mild regurgitation. The pulmonic valve is not well visualized. Pacer wires in right atrium appear normal. Saline bubble study show 2 bubbles crossed suggesting either a very small PFO or small intrapulmonary shunt. Recommendation The patient was given the results of the exam during their hospital stay. Procedure Type of Study LALO procedure:LALO SF. Procedure Date Date: 12/02/2016 Start: 09:19 AM Technical Quality: Good visualization Indications:Endocarditis. Appropriate Use Criteria: 9 Height: 62 inches Weight: 238 pounds BSA: 2.06 m Rhythm: Within normal limits HR: 77 bpm BP: 93/52 mmHg LALO Performed By: Daryn Ceron MD Procedure Informed Consent Procedure consent form obtained. - See IV sedation record Type of Anesthesia: Moderate sedation Signature
--- NOTE | ~2016-11-24 | CO ---
ADMIT: 11/24/2016 RM/LOC: 432 [facility] MR#: [id number] [address] [address] SARAHI ESTRADA [address] [place] [address] Consultation Report SEX: F AGE: 61 : 1955 DATE OF CONSULTATION: 12/03/2016 ATTENDING PHYSICIAN: Weston James CONSULTING PHYSICIAN: Jay Rivera MD ADDENDUM: This is an addendum to Sarabjit Duenas's consult. Sarahi was seen in consultation today. I have examined and reviewed the chart. I am in agreement with Sarabjit Duenas's full consult dictation including his documentation, assessment, and plan. In addition to that, I do feel it is warranted to proceed with esophagogastroduodenoscopy in addition to the colonoscopy for evaluation of the source of her anemia and blood loss. I discussed that with her and discussed the risks of both of these in detail, and she wishes to proceed. Jay Rivera MD/ modl JOB #: [id number] CC: Weston James, Attending Physician Weston James, Family Physician
[~2016-11-24 16:10] MED LIST changes: -CORGARD DPS20 MG PO; -LACTULOSE20 GM/30 M PO; -NOVOLOG100 UNIT/2 SQ
--- NOTE | 2016-11-25 07:21 | HP ---
ADMIT: 11/24/2016 RM/LOC: 432 [facility] MR#: [id number] [address] [address] SARAHI ESTRADA [address] [place] [address] History and Physical SEX: F AGE: 61 : 1955 DATE OF SERVICE: 11/24/2016 CHIEF COMPLAINT AND HISTORY OF PRESENT ILLNESS: Sarahi presented with some increased cough, congestion, lethargy, low blood pressure, fluid retention. She was seen in the office after being followed by home health nursing and referred here. She has had some decline in status over the last 48 hours. Her biggest complaint when I interviewed her was all the fluid retention in her legs, buttocks, and abdomen. She is not having any chills or fevers. Her background history of course is that she had an extensive inpatient hospital stay almost a month for septic shock due to bacterial endocarditis from MSSA Staph aureus. She had a complication of acute tubular necrosis requiring hemodialysis, and while there, it was clear that she had developed a new diagnosis of fiber nodular liver disease and this is scheduled to be evaluated further at [facility] Department of Hepatology in December. Thinking is that she probably has nonalcoholic steatohepatitis, but it was a new diagnosis. Other workup for that including viral hepatitis studies and autoimmune hepatitis antibodies were all negative. She has had prior iron studies that were negative, and she does not drink alcohol. When she left the hospital, her dialysis was put on hold about a week ago, her renal function improved somewhat, and her pressures were on the low side anyway. So, Dr. Abbasi elected to stop her diuresis. Since that time, she has had some additional fluid retention, a little bit more trouble breathing. Chest x-ray in the office showed a little bit of fluid in the lungs. For all these reasons, she is admitted to Acute Care to be further evaluated. I have talked to Dr. Abbasi who will also see her in consultation tomorrow morning. He gave me the go ahead, to use my judgment and trying some diuresis with Lasix tonight. PAST MEDICAL HISTORY: Once again, as noted, the recent inpatient hospitalization for the above problem. Chronic medical conditions include chronic neuropathic chest pain, coronary artery disease with prior CABG, type 2 diabetes, poorly controlled, with microalbuminuria. Also, dyslipidemia, hypersplenism with mild esophageal varices probably due to the liver situation, ITP with platelets typically in the 50-70,000 range, obesity, obstructive sleep apnea, GERD with esophagitis and history of Puckett's, remote subarachnoid hemorrhage with minimal residual gait difficulty, chronic ischemic cardiomyopathy with ejection fraction of 50% range, osteoporosis. PAST SURGICAL HISTORY: She has had CABG, hemodialysis with a tunneled dialysis catheter recently being placed, multiple upper and lower scopes, coronary artery stents multiple, implantable cardio-defibrillator, coronary artery bypass, mitral valve repair, rotator cuff repair, tubal ligation, cataract surgery, cholecystectomy, elbow surgery. This may not be a complete list. She also added that during her last hospital stay, she did have melenic stools which resolved spontaneously. SOCIAL HISTORY: I believe she is , but her ex- accompanies her. She is an on and off smoker and no alcohol use. FAMILY HISTORY: Obtained from recent records, positive for alcoholism, ADMIT: 11/24/2016 RM/LOC: 432 [facility] MR#: [id number] [facility] [address] [address] SARAHI ESTRADA [address] [place] [address] History and Physical SEX: F AGE: 61 : 1955 myocardial infarction, diabetes in first-degree relatives. Also, unspecified type of cancer, and a sister of kidney failure. ALLERGIES AND INTOLERANCES: Aspirin, metformin, Januvia. Aspirin thought to be to allergy, the others are side effects. MEDICATIONS: 1. Benazepril 10 mg half tab daily. 2. Plavix 75 mg once a day. 3. Cyclobenzaprine 5 mg at bedtime. 4. Gabapentin 1200 mg t.i.d. 5. Hydrocodone one tab t.i.d. p.r.n. 6. Isosorbide 60 mg once a day. 7. Lasix 60 mg daily. 8. Levemir 30 units b.i.d. 9. Lopressor 12.5 mg b.i.d. 10.Carafate 1 g q.i.d. 11.Potassium 40 mEq b.i.d. 12.Protonix 40 mg b.i.d. 13.Slow-Mag 64 mg b.i.d. 14.Cubicin 1200 mg IV every 48 hours. 15.Lasix 60 mg p.o. daily. REVIEW OF SYSTEMS: CONSTITUTIONAL: Not experiencing any fevers. RESPIRATORY: Slight cough. ENT: No sore throat or nasal congestion or earache. GASTROINTESTINAL: No nausea or vomiting. GENITOURINARY: No acute urinary complaints. CARDIOVASCULAR: Really not experiencing any significant chest pain at this time. RESPIRATORY: A little short of breath. Some cough. SKIN: Still rashes, edema, particularly in the legs. NEURO: Nothing acute. PSYCH: Nothing acute. HEMATOLOGIC: She has had history of subarachnoid bleeding, GI bleeding. No history of blood clots. PHYSICAL EXAMINATION: GENERAL: The patient is alert. Somewhat lethargic and uncomfortable in appearance, but she is fully oriented and answers all questions appropriately. VITAL SIGNS: Most recent vital signs; temp 97.5, pulse 95, respirations 16, BP 131/66, O2 saturation 94%. LUNGS: Mildly decreased. Scattered rhonchi. No wheezes, no rales. HEART: Currently rhythm is regular. Rate is controlled. I do not appreciate a murmur or gallop or rub. ENT: No oral lesions are seen. Nasopharynx is clear. TMs are clear. She is not coughing. EYES: Sclerae are white. No eye drainage. Pupils equal. ADMIT: 11/24/2016 RM/LOC: 432 [facility] MR#: [id number] [address] [address] SARAHI ESTRADA [address] [place] [address] History and Physical SEX: F AGE: 61 : 1955 NECK: No venous distention. No other masses. ABDOMEN: Clinically suspected ascites, round abdomen, probably some subcutaneous edema as well. Because of the prominence, liver and spleen cannot be felt. EXTREMITIES: Upper extremities grossly normal. Lower extremities, pitting edema all the way up to thighs. Also, some body wall edema. NEURO: Grossly intact but for chronic slight right facial droop unchanged. SKIN: No rashes. She has a tunneled dialysis catheter, right upper chest. No signs of infection of her IV site either. IMPRESSION: 1. Fluid overload, multifactorial, probably some combination of renal disease and liver disease with possibly some secondary congestive heart failure. 2. Recent hospitalization for septic shock. 3. Methicillin-sensitive Staphylococcus aureus endocarditis. 4. Acute tubular necrosis requiring dialysis. PLAN: I have discussed the case with Dr. Abbasi. He has agreed to consult as discussed above. Weston James MD/ rajeev JOB #: [id number] CC: Weston James, Attending Physician Weston James, Family Physician
--- NOTE | 2016-11-30 10:43 | CO ---
ADMIT: 11/24/2016 RM/LOC: 432 [facility] MR#: [id number] [address] [address] ESTRADAANNA Giovani [address] [place] [address] Consultation SEX: F AGE: 61 : 1955 DATE OF CONSULTATION: 11/25/2016 ATTENDING PHYSICIAN: Weston James CONSULTING PHYSICIAN: Randy Abbasi MD REASON FOR CONSULTATION: Acute kidney injury. HISTORY OF PRESENT ILLNESS: The patient is a 61-year-old female, who had a recent hospitalization with MSSA bacteremia and mitral valve endocarditis. She had an acute kidney injury for which she required renal replacement therapy. However, she has been making more urine, and her creatinine is now stable in the 2.8 to 2.9 range. She has had no dialysis in over a week. Predominant concern is volume overload. She also has hepatic disease in addition to history of congestive heart failure. She received a dose of furosemide yesterday to which she has had good response. She notes that her edema is somewhat improved. She has lost almost 5 pounds of weight between yesterday and today. She denies any angina, but does report that her breathing is somewhat labored. She denies any urinary complaints. Denies any abdominal complaints otherwise. Appetite is fair. Energy is not too good. PAST MEDICAL HISTORY: 1. Hypertension. 2. Coronary artery disease, status post CABG. 3. Type 2 diabetes mellitus. 4. Microalbuminuria. 5. Dyslipidemia. 6. Fatty liver. 7. Hypersplenism. 8. ITP. 9. Obstructive sleep apnea. 10.GERD. 11.Ischemic cardiomyopathy. 12.Osteoporosis. 13.Mitral valve repair. 14.MSSA bacteremia with mitral valve endocarditis. 15.Cataract surgery. 16.Cholecystectomy. 17.Tubal ligation. SOCIAL HISTORY: She is . She lives at home. She smokes cigarettes and was smoking up until recently. Denies any alcohol use. FAMILY HISTORY: Sister had chronic kidney disease secondary to diabetes. She needed dialysis. ALLERGIES: SULFA, ASPIRIN AND JANUVIA. MEDICATIONS: Reviewed in the chart. ADMIT: 11/24/2016 RM/LOC: 432 [facility] MR#: [id number] [address] [address] ANNA ESTRADA [address] [place] [address] Consultation SEX: F AGE: 61 : 1955 REVIEW OF SYSTEMS: A complete review of systems is negative in detail except as mentioned in history of present illness. PHYSICAL EXAMINATION: VITAL SIGNS: Temperature 97.6 Fahrenheit, pulse 93, blood pressure 109/55. In's and out's since admission have been almost 555 in, and 3050 mL by urine output. GENERAL: She is comfortable. HEENT: Head is nontraumatic and normocephalic. Pale conjunctivae. Moist mucosa. CHEST: Scattered wheezes. CVS: Regular rhythm. S1 and S2. No rubs, murmurs, or gallops. ABDOMEN: Soft, obese. EXTREMITIES: 2+ bilateral lower extremity edema. SKIN: No rash or nodules. NEUROLOGIC: Alert, awake, and oriented x3. She is able to move all extremities. PSYCHIATRIC: Affect and memory within normal limits. LABORATORY DATA: Reviewed. BMP with sodium 142, potassium 3.2, CO2 of 34, creatinine is 2.8, albumin 2.0. Hemoglobin is 8.1, platelet count 99. ASSESSMENT AND PLAN: 1. Acute kidney injury. 2. Volume expansion/edema. 3. Hypokalemia. She has had good response to diuretics. Her hypokalemia is likely secondary to diuresis and I will replete her potassium. There is no indication for renal replacement therapy at this time. I am okay with using loop diuretics for volume management. We will check labs to monitor medication toxicity and adjust diuretics accordingly. if her kidney function remains stable despite diuresis, we may be able to remove our tunneled dialysis catheter early next week. As far as her liver dysfunction is concerned, the plan is to have her follow up with a in class special education teacher in [place] inpatient versus outpatient. Thank you this consultation. Please do not hesitate to contact me with any questions about her care. Randy Abbasi MD/ rajeev JOB #: [id number] CC: Weston James, Attending Physician Weston James, Family Physician
--- NOTE | 2016-12-02 08:58 | CO ---
ADMIT: 11/24/2016 RM/LOC: 432 [facility] MR#: [id number] [address] [address] ANNA ESTRADA [address] [place] [address] Consultation SEX: F AGE: 61 : 1955 DATE OF CONSULTATION: 12/01/2016 ATTENDING PHYSICIAN: Weston James CONSULTING PHYSICIAN: Michael York MD REASON FOR CONSULTATION: Microscopic hematuria. HISTORY OF PRESENT ILLNESS: The patient is a pleasant 61-year-old white female. She was admitted for volume overload. Does have a recent history of acute kidney injury and MSSA sepsis. She did also have mitral valve endocarditis. She recently came off dialysis. Her last serum creatinine was 2.7. Urinalysis on the demonstrated 3+ blood. No microscopic exam was performed at that time. The patient's urine culture from the beginning of October demonstrated Staph aureus. Culture from 10/22 was negative. No culture pending at the present time. The patient states that she may have had a slight bit of blood in her urine from time to time over the years. She does have a history of tobacco use. Nursing states that she did have a large bloody bowel movement. However, the urine yesterday and today is reported as yellow to just brown, but overall clear. There has been no passage of clots. The patient denies any lateralizing flank pain. There has been no pain with voiding. There has been no other symptoms of urinary tract infection. She has no history of recurrent urinary tract infection, otherwise. The patient has had a CT scan yesterday which demonstrates normal upper tracts without evidence of hydronephrosis, stone, or mass. Noncontrast study of course given her renal insufficiency, but an adequate upper tract evaluation in the setting. The patient does have a history of tobacco use. Smoked up until previous hospitalization. Given her age, history of tobacco use and microscopic hematuria, I recommend, I do feel the patient would benefit from cystoscopy, this can be performed on an outpatient basis. The patient voices understanding and is amenable to this plan. PAST MEDICAL HISTORY: Significant for: 1. Recent MSSA sepsis. 2. Acute kidney injury, slowly recovering. 3. Neuropathic chest pain. 4. Coronary artery disease. 5. Type 2 diabetes. 6. Hypersplenism with esophageal varices. 7. Ascites as demonstrated on CT scan. 8. ITP with platelet usually ranging between 50,000 and 70,000. 9. Morbid obesity. 10.COPD. 11.GERD. 12.History of subarachnoid hemorrhage. 13.Ischemic cardiomyopathy with a depressed ejection fraction. 14.Osteoporosis. PAST SURGICAL HISTORY: Includes: ADMIT: 11/24/2016 RM/LOC: 432 [facility] MR#: [id number] [address] [address] ANNA ESTRADA [address] [place] [address] Consultation SEX: F AGE: 61 : 1955 1. Coronary artery bypass grafting. 2. Tunneled hemodialysis catheter which was recently removed. 3. Angioplasty with stent placement. 4. AICD placement. 5. Mitral valve repair. 6. Rotator cuff repair. 7. Tubal ligation. 8. Cataract surgery. 9. Cholecystectomy. 10.Elbow surgery. MEDICATIONS: At present include: 1. Plavix 75 mg p.o. daily. 2. Carafate. 3. Lasix 80 mg p.o. daily. 4. Lopressor 12.5 mg p.o. b.i.d. 5. Neurontin 200 mg p.o. t.i.d. 6. Pravachol 40 mg p.o. at bedtime. 7. Protonix 40 mg p.o. b.i.d. 8. Levemir insulin 30 units subcu b.i.d. 9. NovoLog sliding scale insulin. ALLERGIES: TO SULFA, ASPIRIN, AND JANUVIA. PHYSICAL EXAMINATION: GENERAL: The patient is in no apparent distress. She is very conversant, very pleasant lady. ABDOMEN: Otherwise soft without suprapubic mass or tenderness. No guarding or rebound. BACK: No costovertebral angle tenderness. LABORATORY DATA: Serum creatinine is 2.7 today. Recent coags demonstrated an INR of 1.07. White blood cell count 4.1, hematocrit was stable at 27.0, and platelet count 76. Urinalysis from 11/30/2016 demonstrated a pH of 8.0, 2+ protein, 3+ blood, only trace leukocyte esterase. No microscopic performed. Radiology, CT scan as outlined above. ADMIT: 11/24/2016 RM/LOC: 432 [facility] MR#: [id number] [address] [place] [id number] ANNA ESTRADA [address] [place] [address] Consultation SEX: F AGE: 61 : 1955 ASSESSMENT: 1. Microscopic hematuria. 2. History of tobacco use. Although, I do feel her microscopic hematuria is most likely and most closely related to her recent acute kidney injury, we need to perform cystoscopy to rule out any lower urinary tract pathology. We will schedule this as an outpatient. I do not feel any other upper tract imaging is necessary at this time. PLAN: The patient will be scheduled 1-2 weeks after discharge for an office cystoscopy. Michael York MD/ rajeev JOB #: [id number] CC: Weston James, Attending Physician Weston James, Family Physician
[2016-12-06] MEDS ORDERED: NOVOLOG100 UNIT/2 SQ (06:28)
[2016-12-06] MEDS ORDERED: CORGARD DPS20 MG PO (06:29)
[2016-12-06] MEDS ORDERED: NITROSTAT0.4 MG SL (06:30)
[2016-12-06] MEDS ORDERED: LACTULOSE20 GM/30 M PO (06:30)
--- NOTE | 2016-12-06 07:54 | OR ---
ADMIT: 11/24/2016 RM/LOC: 432 [facility] MR#: [id number] [address] [address] ANNA ESTRADA [address] [place] [address] Operative/Delivery Room Report SEX: F AGE: 61 : 1955 SURGERY DATE: 12/04/2016 SURGEON: Jay Rivera MD PREOPERATIVE DIAGNOSIS: Gastrointestinal bleed. POSTOPERATIVE DIAGNOSES: 1. Gastrointestinal bleed. 2. Extensive esophageal varices. 3. Portal hypertensive gastropathy. 4. Internal hemorrhoids. PROCEDURE: 1. Esophagogastroduodenoscopy. 2. Complete colonoscopy. DESCRIPTION OF PROCEDURE: The patient was taken to the endoscopy suite and placed left side down on her hospital cart. A bite-block was placed and IV sedation was established. The upper endoscope was advanced through the oropharynx into the esophagus. In the mid esophagus, there was obvious evidence of esophageal varices. These were not actively bleeding. The scope was advanced to the stomach. Air was used to insufflate the stomach. The pylorus was intubated. The first and second portions of the duodenum appeared normal. The scope was withdrawn to the stomach. The antrum, body, and fundus showed evidence of portal hypertensive gastropathy without bleeding. No obvious gastric varices were seen. The scope was withdrawn to the gastroesophageal junction where again were noted esophageal varices. These extended to the mid esophagus. No signs of bleeding could be found at these areas. The scope was withdrawn. Rectal exam was performed, which demonstrated internal and external hemorrhoids. The flexible colonoscope was advanced under direct visualization through the entire colon to the level of the cecum. The cecum was identified by its anatomic landmarks in the ileocecal valve. There was evidence of some minimal residual blood scattered ADMIT: 11/24/2016 RM/LOC: 432 [facility] MR#: [id number] [address] [address] ANNA ESTRADA [address] [place] [address] Operative/Delivery Room Report SEX: F AGE: 61 : 1955 through the colon extending from the cecum to the distal colon. There was no active bleeding. The cecum, ascending colon, transverse colon, and descending colon were otherwise normal without inflammatory change polyp, or mass visualized. The scope was withdrawn to the rectum and retroflexed and this demonstrated grade 3 internal hemorrhoids. The scope was straightened and air was suctioned and withdrawn. The patient tolerated the procedure well and transferred to the recovery area in stable condition. PLAN: I would recommend starting and advancing her diet as tolerated. We will continue to monitor for further bleeding, however she does need further Hepatology workup for her liver disease as she does have evidence of significant variceal disease. Jay Rivera MD/ rajeev JOB #: [id number] CC: Weston James, Attending Physician Weston James, Family Physician
--- NOTE | 2016-12-08 06:59 | DS ---
ADMIT: 11/24/2016 RM/LOC: 432 [facility] MR#: [id number] [address] [address] SARAHI ESTRADA [address] [place] [address] General Discharge Summary SEX: F AGE: 61 : 1955 ADMISSION DATE: 11/24/2016 DISCHARGE DATE: 12/05/2016 FINAL DIAGNOSES: 1. Acute fluid overload. 2. Advanced liver cirrhosis, cause not confirmed by biopsy, but nonalcoholic steatohepatitis suspected. 3. Acute kidney injury, already present on admission, improving on dismissal. 4. Large esophageal varices. 5. Acute blood loss anemia likely secondary to large esophageal varices. 6. Type 2 diabetes. 7. Chronic idiopathic thrombocytopenic purpura. 8. 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 9. Microscopic hematuria. 10.Coronary artery disease, previously on Plavix. 11.Folic acid deficiency. NARRATIVE: Sarahi Estrada was admitted to acute care by myself on November 24 with symptoms related to marked fluid overload. She had some cough, congestion, lethargy, and low blood pressures. She was seen in the office and admitted to acute care with decline in status over the last 48 hours prior to admission. See the history and physical examination and electronic record for details. This is in background of patient who had had an almost 1-month stay in October and November for septic shock due to bacterial endocarditis from MSSA Staph aureus with complication of acute tubular necrosis requiring hemodialysis, and while there, new diagnosis of fiber nodular liver disease with cirrhosis with planned outpatient evaluation at [facility] Department of Hepatology in mid December. Other chronic medical conditions of note include coronary artery disease with prior CABG, type 2 diabetes, microalbuminuria, dyslipidemia, prior hypersplenism with mild esophageal varices noted due to the liver situation, chronic ITP with typically platelets in the 50,000 to 70,000 range, obesity, obstructive sleep apnea, Puckett esophagus with esophagitis, remote subarachnoid hemorrhage associated with elevated Coumadin levels with minimal residual gait difficulty, chronic ischemic cardiomyopathy with ejection fraction of 50% range with prior implantable defibrillator, prior mitral valve repair, but not replacement, multiple prior upper and lower scopes. The last EGD prior to this hospitalization in 2013 and last colonoscopy in 2012. Physical exam on time of admission revealed her to be alert, lethargic, uncomfortable in appearance, fully oriented. Temp 97.5, pulse 95, respirations 16, BP 131/66, and O2 saturation 94%. I am not seeing her initial weight in my history and physical examination, but she weighed I believe 249 pounds on admit with the dry weight thought to be in the 225 or possibly less range. She had pitting edema all the way up to her thighs and some body wall edema and was felt clinically likely to have ascites, which was ADMIT: 11/24/2016 RM/LOC: 432 [facility] MR#: [id number] [address] [place] [phone] SARAHI ESTRADA [address] [place] [address] General Discharge Summary SEX: F AGE: 61 : 1955 confirmed by ultrasound. She had a tunneled dialysis catheter in her right upper chest from her prior dialysis. This was eventually removed during her hospital stay. She no longer needed dialysis. Her lungs are mildly decreased, but not felt to be decompensated from a respiratory status. Her cardiac rhythm was regular, and I did not appreciate a murmur on admission. Moreira studies during her hospital stay including an ultrasound on admission showed a large amount of ascites throughout the abdomen and pelvis. Spleen enlarged to 19 cm. No comment was made on the liver as this was a limited imaging study. She did have a CT of the pelvis on November [address] Abbasi, Nephrology regional sales consultant, this was done because of hematuria. There are still large amount of ascites, heterogeneous liver with nodular appearance compatible with cirrhosis and splenomegaly, but there were no suspicious findings in the kidneys or bladder. Chest x-rays x2 showed some chronic changes in the lungs, but no signs of acute infiltrates for acute pulmonary edema. She had a repeat transesophageal echocardiogram done during her hospital stay for surveillance of her recent endocarditis. Ejection fraction was 50% to 55%. Prior small vegetation on the anterior mitral valve leaflet has resolved. There is mild mitral regurgitation, aortic sclerosis, mild tricuspid regurgitation, normal pacer wires in the right atrium. Incidentally noted was a possibility of a small PFO. Operative report on December 04, Dr. Rivera, colonoscopy normal except for internal hemorrhoids and some findings of minimal residual blood scattered throughout the colon extending from the cecum to the distal colon, but no active bleeding. The EGD showed extensive esophageal varices starting in mid esophagus. They were not actively bleeding. There were no obvious gastric varices. There was evidence of portal hypertensive gastropathy. The duodenum was normal. There were also internal and external hemorrhoids noted on the colonoscopy with no bleeding. Laboratory summary is currently not in the electronic medical record, but from memory notable findings were that at one point, she did develop a spike in her ammonia. This was ordered because she had some mild acute mental status change, which cleared rapidly, but we did start her on lactulose during her hospital stay. Her ammonia levels were still slightly elevated in the 40 range prior to dismissal. Initially developed enough of anemia that we did have to transfuse her blood. She received either 1 or 2 units from my memory. Renal function on admission with a creatinine of 2.8. This actually improved to a level of 2.1 prior to dismissal. She had some mild hypokalemia, which was managed with replacement. Her INR was 1.07 was never elevated during her hospital stay. Her Accu-Cheks were monitored for diabetes were variable. The patient was admitted to acute care. She did respond to Lasix for diuresis without significant worsening, and in fact, she had improvement in her renal function during her hospital stay. She has not required dialysis. She diuresed approximately 15 pounds during her hospital stay with significant improvement in her peripheral edema and body wall edema. During her hospital stay, she had consultations with her group sales coordinator with Urology because of the hematuria, and they recommended at some point outpatient cystoscopy. Hematology/Oncology has followed her for years for ITP, and they did some ADMIT: 11/24/2016 RM/LOC: 432 [facility] MR#: [id number] [address] [address] SARAHI ESTRADA [address] [place] [address] General Discharge Summary SEX: F AGE: 61 : 1955 studies showing she was deficient in folic acid, so folic acid was ordered for her. Her stay was prolonged somewhat because of the GI bleeding hence the endoscopy studies. I elected to switch her prior beta-maksim from Lopressor to Nadolol as I felt it might minimize risk of recurrent esophageal varicocele bleed. It was felt she was stable on December 05 for dismissal outpatient management and was dismissed on December 05. DISMISSAL MEDICATIONS: Include: 1. Carafate 1 g q.i.d. 2. Nadolol 20 mg daily. 3. Potassium 20 mEq b.i.d. 4. Lactulose 30 mL t.i.d. 5. Neurontin 200 mg t.i.d. 6. Pravachol 40 mg at bedtime. 7. Omeprazole 20 mg b.i.d. 8. Levemir insulin 30 units b.i.d. 9. NovoLog moderate dose sliding scale correction insulin. 10.Lasix 40 mg b.i.d. Once again, we did not resume her Plavix, and we stopped various other medications. Among them, isosorbide, Norvasc, metoprolol, Invokana, magnesium, IV Cubicin, Desyrel, Flexeril, and hydrocodone and inadvertently stopped her folic acid on dismissal. We will reinstitute that when she comes back to clinic next week. If stable at that point, she will be seen at [facility] Department of Hepatology on December 17, for outpatient evaluation of her chronic liver disease. Weston James MD/ rajeev JOB #: [id number] CC: Weston James MD, Attending Physician Weston James MD, Family Physician
--- NOTE | 2016-12-15 09:10 | CO ---
ADMIT: 11/24/2016 RM/LOC: 432 [facility] MR#: [id number] [address] [address] SARAHI ESTRADA [address] [place] [address] Consultation SEX: F AGE: 61 : 1955 Corrected: 12/04/2016 0740 njv DATE OF CONSULTATION: 12/03/2016 ATTENDING PHYSICIAN: Weston James CONSULTING PHYSICIAN: Jay Rivera MD REASON FOR CONSULTATION: Bright red blood per rectum. HISTORY OF PRESENT ILLNESS: Sarahi is a very pleasant, 61-year-old female, who has been admitted to the hospital for MSSA bacteremia with endocarditis and concerns for septic shock. She also developed acute tubular necrosis and requires dialysis. The patient reports that approximately 2 days ago. She started to have increase in bowel movements and noticed bright red blood per rectum, blood was also noted in the bowl and on the stool. She denies ever having any prior events. She has had a colonoscopy before, but she cannot remember the last time it was performed other than that it was performed by Dr. Luna. She does have a history of colon polyps. She denies any pain, nausea, vomiting, or changes in bowel habits. She has been taking Plavix but that has now been held. She denies any other blood thinning medications. PAST MEDICAL HISTORY: Significant for: 1. Neuropathic chest pain. 2. Coronary artery disease. 3. Type 2 diabetes. 4. Hypersplenism. 5. Esophageal varices. 6. Ascites. 7. ITP. 8. Morbid obesity. 9. COPD. 10.GERD. 11.Previous subarachnoid hemorrhage. 12.Ischemic cardiomyopathy. 13.Coronary artery disease. 14.Osteoporosis. PAST SURGICAL HISTORY: She has had a previous colonoscopy before and also significant for EGD performed by Dr. Edward in 2004, CABG x2, angioplasty, tunnel dialysis catheter placement, AICD placement, mitral valve repair, rotator cuff repair, tubal ligation, cataract surgery, cholecystectomy, and surgery on her elbow. ALLERGIES: SULFA, ASPIRIN, AND JANUVIA. MEDICATIONS: Well documented in chart. FAMILY HISTORY: The patient denies any family history of colon cancer. ADMIT: 11/24/2016 RM/LOC: 432 [facility] MR#: [id number] [address] [address] SARAHI ESTRADA [address] [place] [address] Consultation SEX: F AGE: 61 : 1955 SOCIAL HISTORY: The patient is a tobacco user prior to her admission to the hospital. She states rare alcohol consumption as well. REVIEW OF SYSTEMS: CONSTITUTIONAL: The patient denies any fever, chills, or night sweats. She further denies any dizziness, lightheadedness, or shortness of breath. The rest of comprehensive 10-point review of systems was performed and all other systems are negative. PHYSICAL EXAMINATION: GENERAL: The patient is in no acute distress. She is alert and oriented. HEENT: Head is normocephalic and atraumatic. EOMS are intact. Conjunctivae free of icterus, erythema, or pallor. Pinnae, free of deformities. Nose, midline. No tracheal deviation. NECK: Supple. SKIN: Negative for jaundice, clubbing, edema, pallor or cyanosis. LUNGS: Normal respiratory effort. HEART: Distal pulses intact. Regular rate and rhythm. ABDOMEN: Soft, nondistended, and nontender. NEURO: Grossly intact. LABORATORY DATA: Hemoglobin 7.4. ASSESSMENT: Anemia, lower gastrointestinal bleed. PLAN: The plan is to have the patient undergo colonoscopy performed by Dr. Rivera tomorrow. I discussed the risks, alternatives, benefits, and complications of colonoscopy with the patient to which she has agreement of this plan. I had all her questions answered and would like to proceed. I will get her on the surgery schedule and get her prepped today. Thank you for the consultation of this patient. DARLENE Rinaldi / Jay Rivera MD / rajeev JOB #: [id number] CC: Weston James, Attending Physician Weston James, Family Physician Corrected: 12/04/2016 0740 niels
--- NOTE | 2016-12-17 16:37 | CO ---
ADMIT: 11/24/2016 RM/LOC: 432 [facility] MR#: [id number] [address] [address] ANNA ESTRADA [address] [place] [address] Consultation SEX: F AGE: 61 : 1955 DATE OF CONSULTATION: 12/02/2016 ATTENDING PHYSICIAN: Weston James MD CONSULTING PHYSICIAN: Ivette Carnes MD REASON FOR CONSULTATION: Pancytopenia. HISTORY OF PRESENT ILLNESS: Mrs. Estrada is a 61-year-old female patient of my colleague. She has been seeing Dr. Enriquez for pancytopenia and anemia. She was admitted because of the pulmonary congestion, fluid overload, found to have pancytopenia. Therefore, Hematology was consulted for further evaluation and management. No nausea. No vomiting. No diarrhea. She does have shortness of breath but no fever. Her counts-hemoglobin 7.7, platelet count is 74. PAST MEDICAL HISTORY: History of pancytopenia, unknown etiology, likely early MDS. Other etiologies; fatty liver, hypertension, obstructive sleep apnea, ITP, and type 2 diabetes. SOCIAL HISTORY: She is . She currently does not smoke, does not drink. Denies any IV drug use. ALLERGIES: SHE IS ALLERGIC TO ASPIRIN, JANUVIA, AND SULFA DRUGS. FAMILY HISTORY: Some diabetes and high blood pressure in the family. No cancer. MEDICATIONS: Please review the medication reconciliation form. REVIEW OF SYSTEMS: GENERAL: Awake, alert, and oriented. RESPIRATORY: Mild shortness of breath. CARDIOVASCULAR: No chest pain. GENITOURINARY: No urgency. No frequency. ENDOCRINOLOGY: No polyuria. No polydipsia. INFECTION: No fever. NUTRITION: Adequate. SKIN: No rash. MUSCULOSKELETAL: No pain or aches or cramps. GASTROINTESTINAL: No nausea. No vomiting. No diarrhea. PHYSICAL EXAMINATION: VITAL SIGNS: Temperature is 97.3, pulse 81, respirations 16, blood pressure 104/56. HEENT: Normocephalic, atraumatic. LUNGS: Clear. HEART: S1 and S2 heard. Regular rate and rhythm. ABDOMEN: Soft, nontender, and nondistended. Positive bowel sounds. EXTREMITIES: No edema. NEUROLOGIC: Alert, awake, and oriented x3. SKIN: No rash. ADMIT: 11/24/2016 RM/LOC: 432 [facility] MR#: [id number] [address] [address] ANNA ESTRADA [address] [place] [address] Consultation SEX: F AGE: 61 : 1955 LYMPHATICS: No abnormal lymph node palpated. LABORATORY DATA: WBC is 4.1, hemoglobin 7.7, MCV 103.2, and platelet count of 74. She has chronic kidney disease with a creatinine of 2.7. Normal kidney functions. IMPRESSION AND RECOMMENDATIONS: Mrs. Estrada is a 61-year-old pleasant woman with a history of chronic kidney disease and multiple medical problems as well as pancytopenia, mild, unspecified etiology, could be early myelodysplastic syndrome, and multiple factors, was admitted due to pulmonary edema. Found to have severe anemia and thrombocytopenia. Therefore, Hematology was consulted for further management. Mild pancytopenia with severe anemia and thrombocytopenia, could be partly myelodysplastic syndrome, multiple factors. She also has chronic kidney disease. She also could have idiopathic thrombocytopenic purpura on top of that, but we need to follow up and closely watch. If her hemoglobin counts fall below 7, we will transfuse a unit of blood. If she starts to bleed, then we will transfuse her platelet, but for now, we will continue to watch her. No intervention needed. I will check her LDH, haptoglobin, retic count, B12, and folate level just to make sure that everything is good as well as iron profile and iron serum ferritin. If there is any deficiency in the nutritional factors like folic acid, B12, and iron, then we will replace as needed. Otherwise, continue to monitor her. Continue Lasix and monitor her CBC, and we will transfuse her as needed for now. Thank you for your consultation and opportunity in taking care of your patient. Ivette Carnes MD/ rajeev JOB #: [id number] CC: Weston James MD, Attending Physician Weston James MD, Family Physician
== END 2016-12-05 13:23 | disposition home health service (06) | DRG 432 ==
LOC: 4PCU 16:10
PROVIDERS: ADMIT Family Medicine
PROC: 0JPT0XZ Removal of Tunneled Vascular Access Device from Trunk Subcutaneous Tissue and Fascia, Open Approach (ICD-10-PCS; principal; 2016-11-30)
PROC: 30233N1 Transfusion of Nonautologous Red Blood Cells into Peripheral Vein, Percutaneous Approach (ICD-10-PCS; principal; 2016-11-30)
PROC: 02PY33Z Removal of Infusion Device from Great Vessel, Percutaneous Approach (ICD-10-PCS; principal; 2016-11-30)
PROC: B24BZZ4 Ultrasonography of Heart with Aorta, Transesophageal (ICD-10-PCS; 2016-12-02)
PROC: 0DJD8ZZ Inspection of Lower Intestinal Tract, Via Natural or Artificial Opening Endoscopic (ICD-10-PCS; 2016-12-04)
PROC: 0DJ08ZZ Inspection of Upper Intestinal Tract, Via Natural or Artificial Opening Endoscopic (ICD-10-PCS; 2016-12-04)
DX: K74.60 Unspecified cirrhosis of liver (principal); I33.0 Acute and subacute infective endocarditis; I85.01 Esophageal varices with bleeding; N17.9 Acute kidney failure, unspecified; D69.3 Immune thrombocytopenic purpura; R18.8 Other ascites; I13.0 Hypertensive heart and chronic kidney disease with heart failure and stage 1 through stage 4 chronic kidney disease, or unspecified chronic kidney disease; D62 Acute posthemorrhagic anemia; I50.32 Chronic diastolic (congestive) heart failure; K76.6 Portal hypertension; Q21.1 Atrial septal defect; Z68.42 Body mass index [BMI] 45.0-49.9, adult; E87.70 Fluid overload, unspecified; E66.01 Morbid (severe) obesity due to excess calories; K31.89 Other diseases of stomach and duodenum; E11.40 Type 2 diabetes mellitus with diabetic neuropathy, unspecified; E87.6 Hypokalemia; J44.9 Chronic obstructive pulmonary disease, unspecified; R31.29 Other microscopic hematuria; I25.10 Atherosclerotic heart disease of native coronary artery without angina pectoris; K64.8 Other hemorrhoids; E78.5 Hyperlipidemia, unspecified; F17.210 Nicotine dependence, cigarettes, uncomplicated; E11.65 Type 2 diabetes mellitus with hyperglycemia; D73.1 Hypersplenism; G47.33 Obstructive sleep apnea (adult) (pediatric); K21.9 Gastro-esophageal reflux disease without esophagitis; K22.70 Barrett's esophagus without dysplasia; M81.0 Age-related osteoporosis without current pathological fracture; I25.5 Ischemic cardiomyopathy; Z95.5 Presence of coronary angioplasty implant and graft; Z95.810 Presence of automatic (implantable) cardiac defibrillator; Z99.2 Dependence on renal dialysis; Z82.49 Family history of ischemic heart disease and other diseases of the circulatory system; Z79.82 Long term (current) use of aspirin; Z86.79 Personal history of other diseases of the circulatory system; Z79.02 Long term (current) use of antithrombotics/antiplatelets; Z95.1 Presence of aortocoronary bypass graft; Z79.4 Long term (current) use of insulin